=== PATIENT | male | born 1950 | race African-American/Black ===

== ENCOUNTER 2018-03-05 14:54 | Inpatient (IN) ==
[2018-03-05] MEDS ORDERED: SODIUM CHLORIDE 0.9% 1,000 ML IV PRN (15:10)
[2018-03-05] MEDS ORDERED: ALBUTEROL 2.5 MG/3 ML NEB RESP TX PRN (15:10)
[2018-03-05] MEDS ORDERED: PROPOFOL 1,000 MG/100 ML BOTTLE IV ONE (17:09)
[2018-03-05] MEDS: PROPOFOL 1,000 MG/100 ML BOTTLE IV SCH (17:21)
[2018-03-05] MEDS ORDERED: DEXTROSE 50% 25 GM/50 ML VIAL IV PRN (17:24)
[2018-03-05] MEDS ORDERED: GLUCAGON 1 MG VIAL IM PRN (17:24)
[2018-03-05] MEDS: SODIUM CHLORIDE 0.9% 1,000 ML IV SCH (17:24)
[2018-03-05] MEDS ORDERED: MAGNESIUM SULF RIDER 2 GM in PREMIX 1 EACH IV PRN (17:26)
[2018-03-05] MEDS ORDERED: MAGNESIUM SULF RIDER 4 GM in PREMIX 1 EACH IV PRN (17:26)
[2018-03-05] MEDS ORDERED: MAGNESIUM SULF RIDER 4 GM in PREMIX 1 EACH IV ONE (17:26)
[2018-03-05] MEDS: FAMOTIDINE INJ 40 MG in SODIUM CHLORIDE 0.9% 100 ML IV SCH (17:43)
[2018-03-05 17:57] LABS: Basophils % 0.3 % (0.0-0.8); Eosinophils % 0.5 % (0.00-10.9); Hematocrit 39.7 VOL% (42.0-52.0); Hemoglobin 13.4 GM/DL (14.0-18.0); Immature Granulocytes % 0.8 %; Immature Granulocytes Absolute 0.05 #; Lymphocytes # 0.5 10*3/uL (1.4-4.0); Lymphocytes % 7.4 % (21.2-54.2); Mean Corpuscular HGB Conc 33.8 GM/DL (32-36); Mean Corpuscular Hemoglobin 25 PG (27-34); Mean Corpuscular Volume 74.8 FL (87-102); Mean Platelet Volume 10.8 FL (9.6-12.0); Monocytes # 0.3 10*3/uL (0.11-0.8); Monocytes % 4.5 % (1.7-12.7); Neutrophils # 5.6 10*3/uL (1.4-7.4); Neutrophils % 86.5 % (38.7-73.9); Platelet Count 150 T/CUMM (130-400); Red Blood Count 5.31 MC/CUMM (3.8-5.5); Red Cell Distribution Width 13.9 % (9.3-17.3); White Blood Count 6.5 T/CUMM (4-12)
[2018-03-05 18:13] LABS: ABG Base Excess -1.3 MMOL/L (-2.5-2.5); ABG HCO3 23.3 MMOL/L (20-26); ABG Oxygen Saturation 98.8 % (95-100); ABG PCO2 39.4 MM HG (35-48); ABG PH 7.384 (7.35-7.45); ABG TCO2 20.7 MMOL/L (23-27)
[2018-03-05 18:38] LABS: Troponin I Only 0.02 NG/ML (0.00-0.045)
[2018-03-05 18:40] LABS: Albumin 3.7 G/DL (3.4-5.0); Bilirubin,Total 0.7 MG/DL (0.2-1.0); Calcium 8.5 MG/DL (8.5-10.1); Osmolality,Calculated 263.6 MOS/KG (273-304); Potassium 4.7 MMOL/L (3.5-5.1); Total Protein 7.6 G/DL (6.4-8.3)
[2018-03-05 19:06] LABS: Apearance,Urine CLEAR (Clear); Bilirubin,Urine Negative (Negative); Blood, Urine Negative (Negative); Glucose,Urine (UA) 150 mg/dL (Negative); Ketones,Urine Negative (Negative); Nitrite,Urine Negative (Negative); Protein,Urine Negative; RBC,Urine <1 /HPF (0-4); Urine Color Straw (Yellow); Urine Specific Gravity 1.006 (1.001-1.035); Urine Urobilinogen < 2.0 EU/DL (0.2-1.0); WBC,Urine <1 /HPF (0-6)
[2018-03-05] MEDS: methylPREDNISolone SOD SUC 125 MG/2 ML VIAL IV SCH (19:16)
[2018-03-05] MEDS: diphenhydrAMINE 50 MG/1 ML VIAL IV SCH (19:17)
[2018-03-05] MEDS: ALBUTEROL/IPRATROPIUM 3 ML NEB RESP TX SCH (19:23)
[2018-03-05] MEDS: fentaNYL INJ 1,250 MCG in SODIUM CHLORIDE 0.9% 225 ML IV PRN (20:37)
[2018-03-05] MEDS ORDERED: INSULIN GLARGINE 100 UNIT/ML SUBCUT SCH (21:00)
[2018-03-05] MEDS: INSULIN REGULAR 100 UNIT/ML SUBCUT SCH (21:28)
[2018-03-06] MEDS: ALBUTEROL/IPRATROPIUM 3 ML NEB RESP TX SCH ×4 (00:34→19:42)
[2018-03-06] MEDS: diphenhydrAMINE 50 MG/1 ML VIAL IV SCH ×4 (01:10→17:51)
[2018-03-06] MEDS: methylPREDNISolone SOD SUC 125 MG/2 ML VIAL IV SCH ×4 (01:13→14:16)
[2018-03-06] MEDS: PROPOFOL 1,000 MG/100 ML BOTTLE IV SCH ×5 (02:56→21:53)
[2018-03-06 04:18] LABS: ABG Base Excess -3.6 MMOL/L (-2.5-2.5); ABG HCO3 21.1 MMOL/L (20-26); ABG Oxygen Saturation 98.8 % (95-100); ABG PCO2 37.2 MM HG (35-48); ABG PH 7.372 (7.35-7.45); ABG PO2 136.6 MM HG (80-95); ABG TCO2 22.3 MMOL/L (23-27); Allen Test Positive; Pt O2 Delivery Device Ventilator
[2018-03-06 04:44] LABS: Hematocrit 33.2 VOL% (42.0-52.0); Hemoglobin 11.7 GM/DL (14.0-18.0); Immature Granulocytes % 0.7 %; Immature Granulocytes Absolute 0.04 #; Lymphocytes # 0.4 10*3/uL (1.4-4.0); Lymphocytes % 6.5 % (21.2-54.2); Mean Corpuscular HGB Conc 35.2 GM/DL (32-36); Mean Corpuscular Hemoglobin 26 PG (27-34); Mean Corpuscular Volume 73.9 FL (87-102); Mean Platelet Volume 10.8 FL (9.6-12.0); Monocytes # 0.1 10*3/uL (0.11-0.8); Monocytes % 2.1 % (1.7-12.7); Neutrophils # 5.2 10*3/uL (1.4-7.4); Neutrophils % 90.7 % (38.7-73.9); Platelet Count 134 T/CUMM (130-400); Red Blood Count 4.49 MC/CUMM (3.8-5.5); Red Cell Distribution Width 13.6 % (9.3-17.3); White Blood Count 5.7 T/CUMM (4-12)
[2018-03-06] MEDS: SODIUM CHLORIDE 0.9% 1,000 ML IV SCH ×3 (05:03→16:23)
[2018-03-06 05:16] LABS: Albumin 3.2 G/DL (3.4-5.0); Calcium 8.2 MG/DL (8.5-10.1); Osmolality,Calculated 270.2 MOS/KG (273-304); Total Protein 6.6 G/DL (6.4-8.3)
[2018-03-06] MEDS: FAMOTIDINE INJ 40 MG in SODIUM CHLORIDE 0.9% 100 ML IV SCH ×2 (05:43→17:49)
[2018-03-06 07:08] LABS: Band Neutrophils 2 % (0-10); Hypochromasia 1+; Lymphocytes 7 % (20-55); Platelet Estimate Decreased; Segmented Neutrophils 89 % (50-85); Total Cells Counted 100
[2018-03-06] MEDS ORDERED: SODIUM CHLORIDE 0.9% 1,000 ML IV PRN (08:01)
[2018-03-06] MEDS: INSULIN REGULAR 100 UNIT/ML SUBCUT SCH ×4 (08:42→20:40)
[2018-03-06] MEDS: fentaNYL INJ 1,250 MCG in SODIUM CHLORIDE 0.9% 225 ML IV PRN (12:56)
[2018-03-06] MEDS: methylPREDNISolone SOD SUC 40 MG/1 ML VIAL IV SCH ×2 (15:24→20:38)
[2018-03-06] MEDS ORDERED: INSULIN NPH 100 UNIT/ML SUBCUT SCH (21:00)
[2018-03-07] MEDS: ALBUTEROL/IPRATROPIUM 3 ML NEB RESP TX SCH ×4 (00:58→19:51)
[2018-03-07] MEDS: diphenhydrAMINE 50 MG/1 ML VIAL IV SCH ×4 (02:22→18:18)
[2018-03-07] MEDS: methylPREDNISolone SOD SUC 40 MG/1 ML VIAL IV SCH ×4 (02:25→21:54)
[2018-03-07] MEDS: PROPOFOL 1,000 MG/100 ML BOTTLE IV SCH ×6 (02:27→22:31)
[2018-03-07 03:07] LABS: ABG Base Excess -0.9 MMOL/L (-2.5-2.5); ABG HCO3 24.1 MMOL/L (20-26); ABG PH 7.387 (7.35-7.45); ABG TCO2 25.4 MMOL/L (23-27); Allen Test Positive; Pt O2 Delivery Device Ventilator
[2018-03-07] MEDS: fentaNYL INJ 1,250 MCG in SODIUM CHLORIDE 0.9% 225 ML IV PRN ×2 (03:21→18:22)
[2018-03-07] MEDS: SODIUM CHLORIDE 0.9% 1,000 ML IV SCH ×4 (03:47→21:56)
[2018-03-07] MEDS: FAMOTIDINE INJ 40 MG in SODIUM CHLORIDE 0.9% 100 ML IV SCH ×2 (05:37→18:17)
[2018-03-07 05:44] LABS: Calcium 8.5 MG/DL (8.5-10.1); Osmolality,Calculated 273.4 MOS/KG (273-304); Potassium 4.4 MMOL/L (3.5-5.1)
[2018-03-07] MEDS: INSULIN REGULAR 100 UNIT/ML SUBCUT SCH ×4 (09:40→21:56)
[2018-03-07] MEDS: INSULIN NPH 100 UNIT/ML SUBCUT SCH ×2 (09:40→21:56)
[2018-03-08] MEDS: ALBUTEROL/IPRATROPIUM 3 ML NEB RESP TX SCH ×4 (01:35→19:30)
[2018-03-08] MEDS: diphenhydrAMINE 50 MG/1 ML VIAL IV SCH ×4 (01:53→17:12)
[2018-03-08] MEDS: methylPREDNISolone SOD SUC 40 MG/1 ML VIAL IV SCH ×4 (01:56→21:10)
[2018-03-08] MEDS: SODIUM CHLORIDE 0.9% 1,000 ML IV SCH ×3 (02:00→14:10)
[2018-03-08] MEDS: PROPOFOL 1,000 MG/100 ML BOTTLE IV SCH ×3 (03:05→17:29)
[2018-03-08] MEDS: FAMOTIDINE INJ 40 MG in SODIUM CHLORIDE 0.9% 100 ML IV SCH ×2 (05:57→17:10)
[2018-03-08 06:40] LABS: Allen Test Positive; Pt O2 Delivery Device Ventilator
[2018-03-08 06:41] LABS: ABG Base Excess -1.4 MMOL/L (-2.5-2.5); ABG HCO3 23.2 MMOL/L (20-26); ABG Oxygen Saturation 97.8 % (95-100); ABG TCO2 21.8 MMOL/L (23-27)
[2018-03-08] MEDS: INSULIN NPH 100 UNIT/ML SUBCUT SCH ×2 (08:25→20:52)
[2018-03-08] MEDS: cloNIDine 0.1 MG TABLET PO SCH ×2 (08:25→21:12)
[2018-03-08] MEDS: INSULIN REGULAR 100 UNIT/ML SUBCUT SCH ×4 (08:26→20:52)
[2018-03-08] MEDS: hydrALAZINE 20 MG/1 ML VIAL IV PRN ×2 (09:52→18:21)
[2018-03-08 10:03] LABS: ABG Base Excess -0.8 MMOL/L (-2.5-2.5); ABG HCO3 24.2 MMOL/L (20-26); ABG Oxygen Saturation 98.2 % (95-100); ABG PCO2 41.2 MM HG (35-48); ABG PH 7.387 (7.35-7.45); ABG PO2 112.7 MM HG (80-95); ABG TCO2 25.5 MMOL/L (23-27)
[2018-03-08 10:39] LABS: Basophils % 0.1 % (0.0-0.8); Eosinophils % 0.1 % (0.00-10.9); Hemoglobin 12.5 GM/DL (14.0-18.0); Immature Granulocytes % 2.8 %; Lymphocytes # 0.4 10*3/uL (1.4-4.0); Lymphocytes % 2.5 % (21.2-54.2); Mean Corpuscular HGB Conc 33.8 GM/DL (32-36); Mean Corpuscular Hemoglobin 26 PG (27-34); Mean Corpuscular Volume 76.4 FL (87-102); Mean Platelet Volume 11.1 FL (9.6-12.0); Monocytes # 1.1 10*3/uL (0.11-0.8); Monocytes % 7.3 % (1.7-12.7); NRBC # 0.15 10*3/uL; Neutrophils # 12.7 10*3/uL (1.4-7.4); Neutrophils % 87.2 % (38.7-73.9); Platelet Count 145 T/CUMM (130-400); Red Blood Count 4.84 MC/CUMM (3.8-5.5); Red Cell Distribution Width 14.8 % (9.3-17.3); White Blood Count 14.5 T/CUMM (4-12)
[2018-03-08 10:57] LABS: Calcium 8.5 MG/DL (8.5-10.1); Osmolality,Calculated 278.1 MOS/KG (273-304); Potassium 4.7 MMOL/L (3.5-5.1)
[2018-03-08 10:59] LABS: Lymphocytes 6 % (20-55); Segmented Neutrophils 88 % (50-85); Total Cells Counted 100
[2018-03-08 11:00] LABS: Hypochromasia 1+; Microcytosis 1+; Target Cells Few
[2018-03-08 11:01] LABS: Ovalocytes Slight
[2018-03-08] MEDS: fentaNYL INJ 1,250 MCG in SODIUM CHLORIDE 0.9% 225 ML IV PRN (11:59)
[2018-03-08] MEDS: hydrALAZINE 25 MG TABLET PO SCH ×3 (12:06→21:12)
[2018-03-08] MEDS: chlordiazePOXIDE 10 MG CAPSULE PO SCH ×2 (15:16→21:12)
[2018-03-09] MEDS: diphenhydrAMINE 50 MG/1 ML VIAL IV SCH ×2 (00:09→06:02)
[2018-03-09] MEDS: SODIUM CHLORIDE 0.9% 1,000 ML IV SCH (00:43)
[2018-03-09] MEDS ORDERED: ZALEPLON 5 MG CAPSULE PO PRN (00:47)
[2018-03-09] MEDS: ALBUTEROL/IPRATROPIUM 3 ML NEB RESP TX SCH ×4 (01:31→19:23)
[2018-03-09] MEDS: methylPREDNISolone SOD SUC 40 MG/1 ML VIAL IV SCH (03:10)
[2018-03-09] MEDS: hydrALAZINE 20 MG/1 ML VIAL IV PRN (04:10)
[2018-03-09] MEDS: FAMOTIDINE INJ 40 MG in SODIUM CHLORIDE 0.9% 100 ML IV SCH (06:06)
[2018-03-09] MEDS ORDERED: LORazepam 2 MG/1 ML VIAL IV PRN (07:48)
[2018-03-09] MEDS ORDERED: FUROSEMIDE 40 MG/4 ML VIAL IV ONE (07:50)
[2018-03-09] MEDS ORDERED: methylPREDNISolone SOD SUC 40 MG/1 ML VIAL IV SCH (08:00)
[2018-03-09] MEDS: CETIRIZINE 10 MG TABLET PO SCH (08:04)
[2018-03-09] MEDS: cloNIDine 0.1 MG TABLET PO SCH (08:05)
[2018-03-09] MEDS: hydrALAZINE 25 MG TABLET PO SCH ×4 (08:05→21:26)
[2018-03-09] MEDS: chlordiazePOXIDE 10 MG CAPSULE PO SCH ×3 (08:06→21:26)
[2018-03-09] MEDS: INSULIN REGULAR 100 UNIT/ML SUBCUT SCH ×4 (08:09→21:25)
[2018-03-09] MEDS: INSULIN NPH 100 UNIT/ML SUBCUT SCH ×2 (08:09→21:26)
[2018-03-09] MEDS: FAMOTIDINE 20 MG TABLET PO SCH ×2 (10:21→21:26)
[2018-03-09] MEDS: amLODIPine 5 MG TABLET PO SCH (12:28)
[2018-03-10] MEDS: ALBUTEROL/IPRATROPIUM 3 ML NEB RESP TX SCH ×2 (00:45→07:37)
[2018-03-10 05:03] LABS: Calcium 8.9 MG/DL (8.5-10.1); Osmolality,Calculated 293.8 MOS/KG (273-304); Potassium 3.5 MMOL/L (3.5-5.1); Risk Ratio 3.84; VLDL CHOLESTEROL 16.6 MG/DL
[2018-03-10] MEDS: INSULIN REGULAR 100 UNIT/ML SUBCUT SCH ×2 (08:31→13:05)
[2018-03-10] MEDS ORDERED: ASPIRIN EC 81 MG TABLET PO SCH (09:00)
[2018-03-10] MEDS ORDERED: METOPROLOL SUCCINATE XL 50 MG TABLET PO SCH (09:00)
[2018-03-10] MEDS: FAMOTIDINE 20 MG TABLET PO SCH (09:25)
[2018-03-10] MEDS: amLODIPine 5 MG TABLET PO SCH (09:25)
[2018-03-10] MEDS: CETIRIZINE 10 MG TABLET PO SCH (09:25)
[2018-03-10] MEDS: INSULIN NPH 100 UNIT/ML SUBCUT SCH (09:25)
[2018-03-10] MEDS: hydrALAZINE 25 MG TABLET PO SCH ×2 (09:25→13:00)
[2018-03-10] MEDS: chlordiazePOXIDE 10 MG CAPSULE PO SCH (09:28)
[2018-03-10 13:58] VITALS: BP 164/102
== END 2018-03-10 13:25 | disposition home or self-care (01) | DRG 915 ==
LOC: N.CC 16:35 → SUATTDRO 16:35 → N.CC 03-07 12:54
PROVIDERS: ADMIT Internal Medicine Cardiovascular Disease; ATTEND Internal Medicine

== ENCOUNTER 2019-11-12 16:46 | Inpatient (IN) ==
[2019-11-12] MEDS ORDERED: THIAMINE 200 MG/2 ML VIAL IV STA (17:31)
[2019-11-12 18:57] LABS: Amorphous Crystals,Urine Few /HPF (Few); Apearance,Urine CLOUDY (Clear); Bilirubin,Urine Negative (Negative); Blood, Urine Negative (Negative); Glucose,Urine (UA) Negative (Negative); Hyaline Casts,Urine 22 /LPF (0-3); Ketones,Urine Negative (Negative); Nitrite,Urine Negative (Negative); Protein,Urine Negative; Urine Color Amber (Yellow); Urine Specific Gravity 1.016 (1.001-1.035); Urine Urobilinogen < 2.0 EU/DL (0.2-1.0)
[2019-11-12 18:59] LABS: Basophils # 0.1 10*3/uL (0.0-0.2); Basophils % 0.7 % (0.0-0.8); Eosinophils # 0.8 10*3/uL (0.0-0.87); Eosinophils % 7.2 % (0.00-10.9); Hematocrit 34.1 VOL% (42.0-52.0); Hemoglobin 11.2 GM/DL (14.0-18.0); Immature Granulocytes % 0.4 %; Immature Granulocytes Absolute 0.04 #; Lymphocytes # 1.1 10*3/uL (1.4-4.0); Lymphocytes % 10.2 % (21.2-54.2); Mean Corpuscular HGB Conc 32.8 GM/DL (32-36); Monocytes % 4.7 % (1.7-12.7); Neutrophils % 76.8 % (38.7-73.9); Platelet Count 64 T/CUMM (130-400); Red Blood Count 4.21 MC/CUMM (3.8-5.5); Red Cell Distribution Width 17.5 % (9.3-17.3); White Blood Count 10.8 T/CUMM (4-12)
[2019-11-12 19:03] LABS: Bilirubin,Total 0.4 MG/DL (0.2-1.0); Calcium 8.1 MG/DL (8.5-10.1); Osmolality,Calculated 306.4 MOS/KG (273-304); Thyroid Stimulating Hormone 9.28 uIU/ml (0.358-3.74); Total Protein 4.5 G/DL (6.4-8.3)
[2019-11-12 19:08] LABS: INR 1.5; PT Patient Result 15.9 SECS (9.6-12.2); Partial Thromboplastin Time 36.2 SECS (20.8-36.0)
[2019-11-12] MEDS ORDERED: SODIUM CHLORIDE 0.9% 1,000 ML IV STA (19:33)
[2019-11-12 19:54] LABS: Anisocytosis 1+; Poikilocytosis Slight
[2019-11-12 19:55] LABS: Acanthocytes 1+; Target Cells Slight
[2019-11-12] MEDS ORDERED: diphenhydrAMINE CAP 25 MG CAPSULE PO PRN (22:18)
[2019-11-12] MEDS ORDERED: SODIUM POLYSTYRENE SULFATE 15 GM/60 ML BOTTLE PO STA (22:18)
[2019-11-12] MEDS ORDERED: GLUCAGON 1 MG VIAL IM PRN (22:18)
[2019-11-12] MEDS ORDERED: NICOTINE 21 MG/24 HR PATCH TRANSDERM PRN (22:18)
[2019-11-12] MEDS ORDERED: ONDANSETRON 4 MG/2 ML VIAL IV PRN (22:18)
[2019-11-12] MEDS ORDERED: DEXTROSE 10% 250 ML BAG IV PRN (22:18)
[2019-11-12] MEDS ORDERED: ACETAMINOPHEN 325 MG TABLET PO PRN (22:18)
[2019-11-12] MEDS ORDERED: HALOPERIDOL 5 MG/ML AMP IV PRN (22:24)
[2019-11-12] MEDS ORDERED: SODIUM CHLORIDE 0.9% 1,000 ML IV SCH (22:30)
[2019-11-12 23:26] LABS: Albumin 1.3 G/DL (3.4-5.0); Bilirubin,Direct 0.14 MG/DL (0.0-0.20); Bilirubin,Indirect 0.3 MG/DL (0.0-1.0); Bilirubin,Total 0.4 MG/DL (0.2-1.0); Total Protein 4.8 G/DL (6.4-8.3)
[2019-11-13] MEDS ORDERED: THIAMINE INJ 100 MG, FOLIC ACID INJ 1 MG, MULTIVITAMIN INJ 10 ML in SODIUM CHLORIDE 0.9... IV ONE
[2019-11-13 00:13] LABS: Hepatitis B Core IgM Quant < 0.05 Index; Hepatitis B Surface Ag Quant < 0.10 Index; Hepatitis B Surface Ag Result Negative (Negative); Hepatitis C Virus Ab Quant 0.12 Index; Hepatitis C Virus Ab Result Negative (Negative)
[2019-11-13] MEDS: INSULIN REGULAR 100 UNIT/ML SUBCUT SCH ×4 (01:00→18:33)
[2019-11-13] MEDS ORDERED: SODIUM CHLORIDE 0.9% 1,000 ML IV ONE (02:29)
[2019-11-13 05:17] LABS: Basophils % 0.1 % (0.0-0.8); Eosinophils # 0.3 10*3/uL (0.0-0.87); Hematocrit 33.6 VOL% (42.0-52.0); Hemoglobin 10.9 GM/DL (14.0-18.0); Immature Granulocytes % 0.4 %; Immature Granulocytes Absolute 0.04 #; Lymphocytes # 0.8 10*3/uL (1.4-4.0); Lymphocytes % 8.7 % (21.2-54.2); Mean Corpuscular HGB Conc 32.4 GM/DL (32-36); Monocytes % 5.7 % (1.7-12.7); Neutrophils % 82.1 % (38.7-73.9); Red Blood Count 4.15 MC/CUMM (3.8-5.5); Red Cell Distribution Width 17.6 % (9.3-17.3); White Blood Count 9.6 T/CUMM (4-12)
[2019-11-13 05:21] LABS: Platelet Count 51 T/CUMM (130-400)
[2019-11-13 05:34] LABS: Albumin 1.1 G/DL (3.4-5.0); Bilirubin,Total 0.4 MG/DL (0.2-1.0); Osmolality,Calculated 312.6 MOS/KG (273-304); Total Protein 4.5 G/DL (6.4-8.3)
[2019-11-13 05:41] LABS: Burr Cells Slight; Hypochromasia 1+; Ovalocytes Slight; Platelet Estimate Decreased
[2019-11-13] MEDS: LEVOTHYROXINE 50 MCG TABLET PO SCH (05:41)
[2019-11-13] MEDS: DEXTROSE 5% 1,000 ML IV SCH ×2 (10:02→20:15)
[2019-11-13] MEDS: METOPROLOL TARTRATE 25 MG TABLET PO SCH ×2 (11:23→20:09)
[2019-11-13] MEDS: BICALUTAMIDE 50 MG TABLET PO SCH (11:23)
[2019-11-13 17:43] LABS: Apearance,Urine Slightly Hazy (Clear); Bacteria,Urine Occasional /HPF (Few); Bilirubin,Urine Negative (Negative); Blood, Urine Negative (Negative); Glucose,Urine (UA) Negative (Negative); Hyaline Casts,Urine 12 /LPF (0-3); Ketones,Urine Negative (Negative); Mucus,Urine Occasional /LPF (Occasional); Nitrite,Urine Negative (Negative); Protein,Urine Negative; RBC,Urine 1 /HPF (0-4); Squamous Epithelial Cell,Urine Occasional /HPF (0-10); Urine Specific Gravity 1.015 (1.001-1.035); Urine Urobilinogen < 2.0 EU/DL (0.2-1.0); WBC,Urine 4 /HPF (0-6)
[2019-11-13 17:44] LABS: Urine Color Yellow (Yellow)
[2019-11-13] MEDS: ATORVASTATIN 40 MG TABLET PO SCH (20:10)
[2019-11-14] MEDS: INSULIN REGULAR 100 UNIT/ML SUBCUT SCH ×4 (00:23→17:10)
[2019-11-14] MEDS: LEVOTHYROXINE 50 MCG TABLET PO SCH (05:44)
[2019-11-14] MEDS: DEXTROSE 5% 1,000 ML IV SCH (05:54)
[2019-11-14 06:03] LABS: Basophils % 0.1 % (0.0-0.8); Eosinophils # 0.3 10*3/uL (0.0-0.87); Eosinophils % 3.4 % (0.00-10.9); Hematocrit 30.9 VOL% (42.0-52.0); Hemoglobin 10.2 GM/DL (14.0-18.0); Immature Granulocytes % 0.4 %; Immature Granulocytes Absolute 0.04 #; Lymphocytes % 10.8 % (21.2-54.2); Mean Corpuscular Volume 80.1 FL (87-102); NRBC # 0.03 10*3/uL; Neutrophils % 78.3 % (38.7-73.9); Platelet Count 52 T/CUMM (130-400); Red Blood Count 3.86 MC/CUMM (3.8-5.5); Red Cell Distribution Width 17.5 % (9.3-17.3); White Blood Count 9.2 T/CUMM (4-12)
[2019-11-14 06:22] LABS: Calcium 7.8 MG/DL (8.5-10.1); Osmolality,Calculated 310.4 MOS/KG (273-304)
[2019-11-14 06:24] LABS: Albumin 1.2 G/DL (3.4-5.0); Calcium 7.8 MG/DL (8.5-10.1); Osmolality,Calculated 312.3 MOS/KG (273-304)
[2019-11-14 06:57] LABS: Hypochromasia 1+; Microcytosis 1+; Platelet Estimate Decreased; Target Cells Few
[2019-11-14] MEDS ORDERED: MAGNESIUM SULF RIDER 4 GM in PREMIX 1 EACH IV PRN (07:29)
[2019-11-14] MEDS ORDERED: DEXTROSE 5% 1,000 ML IV SCH (08:30)
[2019-11-14] MEDS: MAGNESIUM SULF RIDER 2 GM in PREMIX 1 EACH IV PRN ×2 (08:37→10:37)
[2019-11-14] MEDS: METOPROLOL TARTRATE 25 MG TABLET PO SCH ×2 (08:37→20:24)
[2019-11-14] MEDS: BICALUTAMIDE 50 MG TABLET PO SCH (08:39)
[2019-11-14] MEDS: FUROSEMIDE 40 MG/4 ML VIAL IV SCH ×2 (09:21→15:04)
[2019-11-14] MEDS: LACTULOSE 20 GM/30 ML UDCUP PO SCH ×2 (09:21→20:25)
[2019-11-14] MEDS ORDERED: LEVOTHYROXINE 100 MCG VIAL IV ONE (10:25)
[2019-11-14] MEDS: ALBUMIN 5% 25 GM in PREMIX 1 EACH IV SCH ×2 (10:44→17:37)
[2019-11-14 14:23] LABS: Calcium 7.9 MG/DL (8.5-10.1); Osmolality,Calculated 302.9 MOS/KG (273-304)
[2019-11-14] MEDS: THIAMINE 200 MG/2 ML VIAL IV SCH ×2 (15:04→20:25)
[2019-11-14] MEDS: methylPREDNISolone SOD SUC 125 MG/2 ML VIAL IV SCH (15:05)
[2019-11-14] MEDS: MULTIVITAMIN LIQUID (CENTRUM) 60 ML BOTTLE NG SCH (16:51)
[2019-11-14] MEDS ORDERED: VANCOMYCIN INJ 1,250 MG in SODIUM CHLORIDE 0.9% 250 ML IV SCH (17:00)
[2019-11-14] MEDS ORDERED: LIOTHYRONINE 25 MCG TABLET PO SCH ×2 (17:05→17:22)
[2019-11-14] MEDS: LIOTHYRONINE 25 MCG TABLET PO SCH (17:37)
[2019-11-14] MEDS: ATORVASTATIN 40 MG TABLET PO SCH (20:24)
[2019-11-15] MEDS: methylPREDNISolone SOD SUC 125 MG/2 ML VIAL IV SCH ×4 (00:16→22:38)
[2019-11-15] MEDS: INSULIN REGULAR 100 UNIT/ML SUBCUT SCH ×4 (00:43→17:45)
[2019-11-15] MEDS: ALBUMIN 5% 25 GM in PREMIX 1 EACH IV SCH (02:16)
[2019-11-15 05:28] LABS: Hematocrit 25.6 VOL% (42.0-52.0); Hemoglobin 8.5 GM/DL (14.0-18.0); Immature Granulocytes % 0.7 %; Immature Granulocytes Absolute 0.04 #; Lymphocytes # 0.5 10*3/uL (1.4-4.0); Lymphocytes % 8.7 % (21.2-54.2); Mean Corpuscular HGB Conc 33.2 GM/DL (32-36); Mean Corpuscular Volume 79.5 FL (87-102); Monocytes % 1.2 % (1.7-12.7); NRBC # 0.02 10*3/uL; Neutrophils % 89.4 % (38.7-73.9); Red Blood Count 3.22 MC/CUMM (3.8-5.5); Red Cell Distribution Width 17.2 % (9.3-17.3); White Blood Count 6.1 T/CUMM (4-12)
[2019-11-15 05:30] LABS: Platelet Count 53 T/CUMM (130-400)
[2019-11-15 06:01] LABS: Platelet Estimate Decreased
[2019-11-15 06:02] LABS: Polychromasia Few; Target Cells Few
[2019-11-15 06:04] LABS: Folate 7.8 NG/ML (5.4-24.0)
[2019-11-15] MEDS: LIOTHYRONINE 25 MCG TABLET PO SCH (06:08)
[2019-11-15] MEDS ORDERED: LIOTHYRONINE 25 MCG TABLET PO SCH ×2 (07:00→16:58)
[2019-11-15] MEDS ORDERED: LEVOTHYROXINE 100 MCG VIAL IV SCH (07:00)
[2019-11-15 07:23] LABS: Calcium 8.1 MG/DL (8.5-10.1); Osmolality,Calculated 311.4 MOS/KG (273-304)
[2019-11-15] MEDS: LACTULOSE 20 GM/30 ML UDCUP PO SCH ×3 (08:11→20:05)
[2019-11-15] MEDS: FUROSEMIDE 40 MG/4 ML VIAL IV SCH ×2 (08:11→15:12)
[2019-11-15] MEDS: BICALUTAMIDE 50 MG TABLET PO SCH (08:12)
[2019-11-15] MEDS: METOPROLOL TARTRATE 25 MG TABLET PO SCH ×2 (08:12→20:05)
[2019-11-15] MEDS: THIAMINE 200 MG/2 ML VIAL IV SCH ×3 (08:12→20:06)
[2019-11-15] MEDS: MULTIVITAMIN LIQUID (CENTRUM) 60 ML BOTTLE NG SCH (08:13)
[2019-11-15 08:18] LABS: ABG Base Excess -8.3 MMOL/L (-2.5-2.5); ABG HCO3 16.5 MMOL/L (20-26); ABG Oxygen Saturation 97.9 % (95-100); ABG PCO2 31.1 MM HG (35-48); ABG PH 7.343 (7.35-7.45); ABG PO2 136.2 MM HG (80-95); ABG TCO2 17.5 MMOL/L (23-27); Allen Test Positive
[2019-11-15] MEDS: MEROPENEM 500 MG in SODIUM CHLORIDE 0.9% 100 ML IV SCH ×2 (10:50→18:00)
[2019-11-15] MEDS: ALBUMIN 25% 25 GM in PREMIX 1 EACH IV SCH ×2 (12:09→20:05)
[2019-11-15 15:29] LABS: Albumin 2.3 G/DL (3.4-5.0); Bilirubin,Total 0.7 MG/DL (0.2-1.0); Calcium 8.4 MG/DL (8.5-10.1); Osmolality,Calculated 318.2 MOS/KG (273-304); Total Protein 5.1 G/DL (6.4-8.3)
[2019-11-15] MEDS ORDERED: chlordiazePOXIDE 10 MG CAPSULE PO PRN (17:39)
[2019-11-15] MEDS ORDERED: chlordiazePOXIDE 10 MG CAPSULE PO ONE (17:40)
[2019-11-15] MEDS: SODIUM BICARB INJ 50 MEQ in DEXTROSE 5% 1,000 ML IV SCH (18:00)
[2019-11-15] MEDS: ATORVASTATIN 40 MG TABLET PO SCH (20:05)
[2019-11-16] MEDS: INSULIN REGULAR 100 UNIT/ML SUBCUT SCH ×5 (00:13→23:27)
[2019-11-16] MEDS: MEROPENEM 500 MG in SODIUM CHLORIDE 0.9% 100 ML IV SCH ×3 (03:35→18:23)
[2019-11-16] MEDS: ALBUMIN 25% 25 GM in PREMIX 1 EACH IV SCH (03:36)
[2019-11-16 04:35] LABS: Basophils % 0.1 % (0.0-0.8); Hematocrit 23.5 VOL% (42.0-52.0); Hemoglobin 7.7 GM/DL (14.0-18.0); Immature Granulocytes % 0.5 %; Immature Granulocytes Absolute 0.04 #; Lymphocytes % 11.7 % (21.2-54.2); Mean Corpuscular HGB Conc 32.8 GM/DL (32-36); Mean Corpuscular Volume 81.3 FL (87-102); Monocytes % 5.2 % (1.7-12.7); NRBC # 0.04 10*3/uL; Neutrophils % 82.5 % (38.7-73.9); Red Blood Count 2.89 MC/CUMM (3.8-5.5); Red Cell Distribution Width 17.1 % (9.3-17.3); White Blood Count 8.1 T/CUMM (4-12)
[2019-11-16 04:36] LABS: Platelet Count 56 T/CUMM (130-400)
[2019-11-16] MEDS: SODIUM BICARB INJ 50 MEQ in DEXTROSE 5% 1,000 ML IV SCH ×3 (04:38→23:13)
[2019-11-16 04:56] LABS: Albumin 2.8 G/DL (3.4-5.0); Bilirubin,Total 0.7 MG/DL (0.2-1.0); Calcium 8.3 MG/DL (8.5-10.1); Osmolality,Calculated 317.2 MOS/KG (273-304); Total Protein 5.2 G/DL (6.4-8.3)
[2019-11-16] MEDS: LIOTHYRONINE 25 MCG TABLET PO SCH (06:08)
[2019-11-16] MEDS: methylPREDNISolone SOD SUC 125 MG/2 ML VIAL IV SCH ×3 (06:08→23:26)
[2019-11-16] MEDS: LEVOTHYROXINE 100 MCG VIAL IV SCH (06:11)
[2019-11-16] MEDS: BICALUTAMIDE 50 MG TABLET PO SCH (10:43)
[2019-11-16] MEDS: LACTULOSE 20 GM/30 ML UDCUP PO SCH ×2 (10:43→21:31)
[2019-11-16] MEDS: METOPROLOL TARTRATE 25 MG TABLET PO SCH ×2 (10:45→21:31)
[2019-11-16] MEDS: MULTIVITAMIN LIQUID (CENTRUM) 60 ML BOTTLE NG SCH (10:45)
[2019-11-16] MEDS: THIAMINE 200 MG/2 ML VIAL IV SCH ×3 (10:46→21:31)
[2019-11-16] MEDS: ALBUMIN 5% 25 GM in PREMIX 1 EACH IV SCH (18:41)
[2019-11-16] MEDS: ATORVASTATIN 40 MG TABLET PO SCH (21:31)
[2019-11-17] MEDS: ALBUMIN 5% 25 GM in PREMIX 1 EACH IV SCH (03:03)
[2019-11-17] MEDS: MEROPENEM 500 MG in SODIUM CHLORIDE 0.9% 100 ML IV SCH ×3 (04:16→21:15)
[2019-11-17 05:25] LABS: Calcium 8.6 MG/DL (8.5-10.1); Osmolality,Calculated 311.4 MOS/KG (273-304)
[2019-11-17] MEDS: INSULIN REGULAR 100 UNIT/ML SUBCUT SCH ×3 (05:53→17:44)
[2019-11-17] MEDS: methylPREDNISolone SOD SUC 125 MG/2 ML VIAL IV SCH ×3 (06:15→22:30)
[2019-11-17] MEDS: LEVOTHYROXINE 100 MCG VIAL IV SCH (06:15)
[2019-11-17] MEDS: LIOTHYRONINE 25 MCG TABLET PO SCH (06:15)
[2019-11-17 07:06] LABS: Hematocrit 22.1 VOL% (42.0-52.0); Hemoglobin 7.3 GM/DL (14.0-18.0); Immature Granulocytes % 0.6 %; Immature Granulocytes Absolute 0.05 #; Lymphocytes # 0.6 10*3/uL (1.4-4.0); Mean Corpuscular Volume 80.1 FL (87-102); Monocytes % 4.9 % (1.7-12.7); NRBC # 0.09 10*3/uL; Neutrophils % 87.5 % (38.7-73.9); Platelet Count 53 T/CUMM (130-400); Red Blood Count 2.76 MC/CUMM (3.8-5.5)
[2019-11-17] MEDS: SODIUM BICARB INJ 50 MEQ in DEXTROSE 5% 1,000 ML IV SCH ×2 (07:46→15:48)
[2019-11-17 07:47] LABS: Hypochromasia 1+; Platelet Estimate Decreased; Target Cells Few
[2019-11-17] MEDS: METOPROLOL TARTRATE 25 MG TABLET PO SCH ×2 (09:30→20:58)
[2019-11-17] MEDS: LACTULOSE 20 GM/30 ML UDCUP PO SCH ×3 (09:30→20:58)
[2019-11-17] MEDS: MULTIVITAMIN LIQUID (CENTRUM) 60 ML BOTTLE NG SCH (09:31)
[2019-11-17] MEDS: BICALUTAMIDE 50 MG TABLET PO SCH (09:32)
[2019-11-17] MEDS: THIAMINE 200 MG/2 ML VIAL IV SCH ×3 (09:32→21:13)
[2019-11-17] MEDS ORDERED: ACETYLCYSTEINE 20% 800 MG/4 ML VIAL RESP TX ONE (11:28)
[2019-11-17] MEDS ORDERED: SODIUM CHLORIDE 0.9% 1,000 ML IV PRN ×2 (16:44→16:46)
[2019-11-17] MEDS ORDERED: INSULIN DETEMIR SUBCUT SCH (18:46)
[2019-11-17 20:17] LABS: Apearance,Urine Slightly Hazy (Clear); Bacteria,Urine Few /HPF (Few); Bilirubin,Urine Negative (Negative); Blood, Urine Large mg/dL (Negative); Calcium Oxalate Crystals,Urine Occasional /HPF (Few); Glucose,Urine (UA) Negative (Negative); Hyaline Casts,Urine 138 /LPF (0-3); Ketones,Urine Negative (Negative); Mucus,Urine Occasional /LPF (Occasional); Nitrite,Urine Negative (Negative); Protein,Urine Negative; RBC,Urine 51 /HPF (0-4); Squamous Epithelial Cell,Urine Occasional /HPF (0-10); Urine Color Yellow (Yellow); Urine Specific Gravity 1.013 (1.001-1.035); Urine Urobilinogen < 2.0 EU/DL (0.2-1.0); WBC,Urine 73 /HPF (0-6)
[2019-11-17] MEDS: ATORVASTATIN 40 MG TABLET PO SCH (20:58)
[2019-11-17] MEDS: traZODone 50 MG TABLET PO SCH (20:58)
[2019-11-18] MEDS ORDERED: SODIUM CHLORIDE 0.9% 1,000 ML IV PRN (00:22)
[2019-11-18 00:45] LABS: Hematocrit 29.5 VOL% (42.0-52.0); Hemoglobin 9.3 GM/DL (14.0-18.0)
[2019-11-18] MEDS: INSULIN REGULAR 100 UNIT/ML SUBCUT SCH ×4 (01:29→19:26)
[2019-11-18] MEDS: SODIUM BICARB INJ 50 MEQ in DEXTROSE 5% 1,000 ML IV SCH (01:31)
[2019-11-18] MEDS: MEROPENEM 500 MG in SODIUM CHLORIDE 0.9% 100 ML IV SCH ×3 (04:08→18:11)
[2019-11-18 05:27] LABS: Hematocrit 26.2 VOL% (42.0-52.0); Hemoglobin 8.8 GM/DL (14.0-18.0); Immature Granulocytes % 0.8 %; Immature Granulocytes Absolute 0.07 #; Lymphocytes # 0.5 10*3/uL (1.4-4.0); Lymphocytes % 5.6 % (21.2-54.2); Mean Corpuscular HGB Conc 33.6 GM/DL (32-36); Mean Corpuscular Volume 79.9 FL (87-102); Monocytes % 4.3 % (1.7-12.7); NRBC # 0.04 10*3/uL; Neutrophils % 89.3 % (38.7-73.9); Platelet Count 61 T/CUMM (130-400); Red Blood Count 3.28 MC/CUMM (3.8-5.5); Red Cell Distribution Width 16.9 % (9.3-17.3); White Blood Count 8.6 T/CUMM (4-12)
[2019-11-18 05:48] LABS: Calcium 8.8 MG/DL (8.5-10.1); Hypochromasia 1+; Lymphocytes 4 % (20-55); Nucleated Red Blood Cells 2 (0-5); Osmolality,Calculated 320.6 MOS/KG (273-304); Ovalocytes Slight; Platelet Estimate Decreased; Segmented Neutrophils 95 % (50-85); Total Cells Counted 100
[2019-11-18 05:49] LABS: Target Cells Few
[2019-11-18 05:52] LABS: Free T4 (Free Thyroxine) 0.87 NG/DL (0.76-1.46); Thyroid Stimulating Hormone 0.252 uIU/ml (0.358-3.74)
[2019-11-18 05:55] LABS: Albumin 2.9 G/DL (3.4-5.0); Bilirubin,Total 0.9 MG/DL (0.2-1.0); Calcium 8.9 MG/DL (8.5-10.1); Osmolality,Calculated 313.1 MOS/KG (273-304)
[2019-11-18] MEDS ORDERED: POTASSIUM CHLORIDE 20 MEQ/15 ML UDCUP PER TUBE PRN (06:38)
[2019-11-18] MEDS ORDERED: POTASSIUM CHLORIDE RIDER 10 MEQ in PREMIX 1 EACH IV PRN (06:42)
[2019-11-18] MEDS ORDERED: POTASSIUM CHLORIDE 20 MEQ/15 ML UDCUP PER TUBE ONE (06:45)
[2019-11-18] MEDS: methylPREDNISolone SOD SUC 125 MG/2 ML VIAL IV SCH ×2 (06:59→15:15)
[2019-11-18] MEDS: LEVOTHYROXINE 100 MCG VIAL IV SCH (06:59)
[2019-11-18] MEDS: LIOTHYRONINE 25 MCG TABLET PO SCH (07:01)
[2019-11-18] MEDS ORDERED: OMEGA 3 ACID ETHYL ESTERS 1 GM CAPSULE PO SCH (09:00)
[2019-11-18 09:35] LABS: Hematocrit 26.8 VOL% (42.0-52.0); Hemoglobin 9.1 GM/DL (14.0-18.0)
[2019-11-18] MEDS: THIAMINE 200 MG/2 ML VIAL IV SCH ×3 (10:52→21:58)
[2019-11-18] MEDS: CETIRIZINE 10 MG TABLET PO SCH (11:19)
[2019-11-18] MEDS: METOPROLOL TARTRATE 25 MG TABLET PO SCH ×2 (11:19→21:57)
[2019-11-18] MEDS: BICALUTAMIDE 50 MG TABLET PO SCH (11:20)
[2019-11-18] MEDS: MULTIVITAMIN LIQUID (CENTRUM) 60 ML BOTTLE NG SCH (11:20)
[2019-11-18] MEDS: LACTULOSE 20 GM/30 ML UDCUP PO SCH ×3 (11:20→21:58)
[2019-11-18] MEDS: POTASSIUM CHLORIDE INJ 40 MEQ in DEXTROSE 5% 1,000 ML IV SCH ×2 (11:50→21:55)
[2019-11-18 14:46] LABS: Hemoglobin 9.7 GM/DL (14.0-18.0)
[2019-11-18 18:16] LABS: Calcium 8.8 MG/DL (8.5-10.1); Osmolality,Calculated 306.6 MOS/KG (273-304)
[2019-11-18] MEDS ORDERED: POTASSIUM CHLORIDE 20 MEQ TABLET PO ONE (21:00)
[2019-11-18] MEDS: traZODone 50 MG TABLET PO SCH (21:58)
[2019-11-18] MEDS: ATORVASTATIN 40 MG TABLET PO SCH (21:58)
[2019-11-19] MEDS: INSULIN REGULAR 100 UNIT/ML SUBCUT SCH ×4 (00:38→18:34)
[2019-11-19] MEDS: methylPREDNISolone SOD SUC 125 MG/2 ML VIAL IV SCH ×4 (00:39→23:06)
[2019-11-19] MEDS: MEROPENEM 500 MG in SODIUM CHLORIDE 0.9% 100 ML IV SCH ×3 (03:59→18:34)
[2019-11-19] MEDS: LEVOTHYROXINE 100 MCG VIAL IV SCH (06:00)
[2019-11-19] MEDS: LIOTHYRONINE 25 MCG TABLET PO SCH (06:01)
[2019-11-19 06:41] LABS: Hematocrit 28.4 VOL% (42.0-52.0); Hemoglobin 9.5 GM/DL (14.0-18.0); Immature Granulocytes % 0.6 %; Immature Granulocytes Absolute 0.05 #; Lymphocytes # 0.4 10*3/uL (1.4-4.0); Lymphocytes % 4.7 % (21.2-54.2); Mean Corpuscular HGB Conc 33.5 GM/DL (32-36); Monocytes % 6.9 % (1.7-12.7); NRBC # 0.05 10*3/uL; Neutrophils % 87.8 % (38.7-73.9); Platelet Count 52 T/CUMM (130-400); Red Blood Count 3.55 MC/CUMM (3.8-5.5); Red Cell Distribution Width 16.7 % (9.3-17.3); White Blood Count 8.9 T/CUMM (4-12)
[2019-11-19 07:16] LABS: Calcium 8.9 MG/DL (8.5-10.1); Osmolality,Calculated 309.3 MOS/KG (273-304)
[2019-11-19 07:19] LABS: Hypochromasia 1+; Lymphocytes 4 % (20-55); Microcytosis 1+; Platelet Estimate Decreased; Polychromasia Slight; Segmented Neutrophils 91 % (50-85); Target Cells Few; Total Cells Counted 100
[2019-11-19] MEDS ORDERED: POTASSIUM CHLORIDE 20 MEQ TABLET PO ONE (11:00)
[2019-11-19] MEDS: METOPROLOL TARTRATE 25 MG TABLET PO SCH ×2 (11:05→21:42)
[2019-11-19] MEDS: THIAMINE 200 MG/2 ML VIAL IV SCH ×3 (11:05→21:42)
[2019-11-19] MEDS: CETIRIZINE 10 MG TABLET PO SCH (11:07)
[2019-11-19] MEDS: LACTULOSE 20 GM/30 ML UDCUP PO SCH ×3 (11:07→23:05)
[2019-11-19] MEDS: BICALUTAMIDE 50 MG TABLET PO SCH (11:07)
[2019-11-19] MEDS: POTASSIUM CHLORIDE INJ 40 MEQ in DEXTROSE 5% 1,000 ML IV SCH ×2 (11:22→21:43)
[2019-11-19] MEDS: MULTIVITAMIN LIQUID (CENTRUM) 60 ML BOTTLE NG SCH (13:33)
[2019-11-19] MEDS: traZODone 50 MG TABLET PO SCH (21:42)
[2019-11-19] MEDS: ATORVASTATIN 40 MG TABLET PO SCH (21:42)
[2019-11-20] MEDS: INSULIN REGULAR 100 UNIT/ML SUBCUT SCH ×4 (03:01→17:28)
[2019-11-20] MEDS: MEROPENEM 500 MG in SODIUM CHLORIDE 0.9% 100 ML IV SCH ×2 (03:02→12:32)
[2019-11-20] MEDS: LIOTHYRONINE 25 MCG TABLET PO SCH (06:14)
[2019-11-20] MEDS: LEVOTHYROXINE 100 MCG VIAL IV SCH (06:16)
[2019-11-20 06:27] LABS: Hematocrit 27.3 VOL% (42.0-52.0); Hemoglobin 8.9 GM/DL (14.0-18.0); Immature Granulocytes % 0.7 %; Immature Granulocytes Absolute 0.06 #; Lymphocytes # 0.3 10*3/uL (1.4-4.0); Lymphocytes % 2.9 % (21.2-54.2); Mean Corpuscular HGB Conc 32.6 GM/DL (32-36); Mean Corpuscular Volume 81.7 FL (87-102); NRBC # 0.03 10*3/uL; Neutrophils % 91.4 % (38.7-73.9); Platelet Count 50 T/CUMM (130-400); Red Blood Count 3.34 MC/CUMM (3.8-5.5); Red Cell Distribution Width 17.3 % (9.3-17.3); White Blood Count 8.6 T/CUMM (4-12)
[2019-11-20 06:49] LABS: Osmolality,Calculated 307.8 MOS/KG (273-304)
[2019-11-20] MEDS: SODIUM BICARB INJ 50 MEQ in DEXTROSE 5% 1,000 ML IV SCH (07:36)
[2019-11-20] MEDS: CETIRIZINE 10 MG TABLET PO SCH (08:12)
[2019-11-20] MEDS: LACTULOSE 20 GM/30 ML UDCUP PO SCH ×3 (08:13→23:14)
[2019-11-20] MEDS: THIAMINE 200 MG/2 ML VIAL IV SCH ×3 (08:13→21:21)
[2019-11-20] MEDS: methylPREDNISolone SOD SUC 125 MG/2 ML VIAL IV SCH ×2 (08:13→15:23)
[2019-11-20] MEDS: POTASSIUM CHLORIDE INJ 40 MEQ in DEXTROSE 5% 1,000 ML IV SCH ×3 (08:14→21:48)
[2019-11-20] MEDS: BICALUTAMIDE 50 MG TABLET PO SCH (08:14)
[2019-11-20] MEDS: MULTIVITAMIN LIQUID (CENTRUM) 60 ML BOTTLE NG SCH (08:14)
[2019-11-20] MEDS: METOPROLOL TARTRATE 25 MG TABLET PO SCH ×2 (08:15→21:21)
[2019-11-20 08:24] LABS: Lymphocytes 5 % (20-55); Platelet Estimate Decreased; Segmented Neutrophils 93 % (50-85); Total Cells Counted 100
[2019-11-20 08:25] LABS: Anisocytosis 2+; Macrocytosis 1+; Poikilocytosis Slight; Target Cells Few
[2019-11-20] MEDS ORDERED: traZODone 50 MG TABLET PO PRN (14:57)
[2019-11-20] MEDS: ATORVASTATIN 40 MG TABLET PO SCH (21:21)
[2019-11-21] MEDS: INSULIN REGULAR 100 UNIT/ML SUBCUT SCH ×4 (00:03→17:56)
[2019-11-21 05:47] LABS: Hematocrit 26.4 VOL% (42.0-52.0); Hemoglobin 8.8 GM/DL (14.0-18.0); Immature Granulocytes % 0.8 %; Immature Granulocytes Absolute 0.08 #; Lymphocytes # 0.4 10*3/uL (1.4-4.0); Lymphocytes % 3.9 % (21.2-54.2); Mean Corpuscular HGB Conc 33.3 GM/DL (32-36); Monocytes % 4.1 % (1.7-12.7); NRBC # 0.05 10*3/uL; Neutrophils % 91.2 % (38.7-73.9); Platelet Count 43 T/CUMM (130-400); Red Blood Count 3.26 MC/CUMM (3.8-5.5); Red Cell Distribution Width 17.4 % (9.3-17.3); White Blood Count 9.5 T/CUMM (4-12)
[2019-11-21 06:01] LABS: Calcium 9.1 MG/DL (8.5-10.1); Osmolality,Calculated 311.4 MOS/KG (273-304)
[2019-11-21 06:11] LABS: Free T4 (Free Thyroxine) 1.34 NG/DL (0.76-1.46)
[2019-11-21 06:19] LABS: Burr Cells Slight; Hypochromasia 1+; Lymphocytes 4 % (20-55); Nucleated Red Blood Cells 1 (0-5); Ovalocytes Slight; Platelet Estimate Decreased; Segmented Neutrophils 92 % (50-85); Target Cells Few; Total Cells Counted 100
[2019-11-21] MEDS: LEVOTHYROXINE 100 MCG VIAL IV SCH (06:19)
[2019-11-21] MEDS: LIOTHYRONINE 25 MCG TABLET PO SCH (06:19)
[2019-11-21] MEDS ORDERED: propofoL 200 MG/20 ML VIAL IV ONE (09:00)
[2019-11-21] MEDS ORDERED: LIDOCAINE 2% 5 ML VIAL ONE (09:00)
[2019-11-21] MEDS: MULTIVITAMIN LIQUID (CENTRUM) 60 ML BOTTLE NG SCH (10:11)
[2019-11-21] MEDS: BICALUTAMIDE 50 MG TABLET PO SCH (10:12)
[2019-11-21] MEDS: LACTULOSE 20 GM/30 ML UDCUP PO SCH ×3 (10:12→22:02)
[2019-11-21] MEDS: THIAMINE 200 MG/2 ML VIAL IV SCH ×2 (10:12→15:18)
[2019-11-21] MEDS: MAGNESIUM CHLORIDE 64 MG TABLET PO SCH (10:12)
[2019-11-21] MEDS: METOPROLOL TARTRATE 25 MG TABLET PO SCH ×2 (10:13→22:02)
[2019-11-21] MEDS: CETIRIZINE 10 MG TABLET PO SCH (10:13)
[2019-11-21] MEDS: PANTOPRAZOLE 40 MG TABLET PO SCH ×2 (13:12→22:02)
[2019-11-21] MEDS: FUROSEMIDE 20 MG/2 ML VIAL IV SCH (15:17)
[2019-11-21] MEDS: HEPARIN 5,000 UNIT/1 ML VIAL SUBCUT SCH (15:18)
[2019-11-21] MEDS: ATORVASTATIN 40 MG TABLET PO SCH (22:02)
[2019-11-22] MEDS: THIAMINE 200 MG/2 ML VIAL IV SCH ×2 (00:46→09:57)
[2019-11-22] MEDS: POTASSIUM CHLORIDE INJ 40 MEQ in DEXTROSE 5% 1,000 ML IV SCH (00:50)
[2019-11-22] MEDS: INSULIN REGULAR 100 UNIT/ML SUBCUT SCH ×3 (00:51→12:22)
[2019-11-22] MEDS: HEPARIN 5,000 UNIT/1 ML VIAL SUBCUT SCH ×2 (03:11→14:30)
[2019-11-22] MEDS: LIOTHYRONINE 25 MCG TABLET PO SCH (06:29)
[2019-11-22] MEDS ORDERED: LEVOTHYROXINE 50 MCG TABLET PO SCH (06:30)
[2019-11-22] MEDS: LACTULOSE 20 GM/30 ML UDCUP PO SCH (09:54)
[2019-11-22] MEDS: MAGNESIUM CHLORIDE 64 MG TABLET PO SCH (09:55)
[2019-11-22] MEDS: BICALUTAMIDE 50 MG TABLET PO SCH (09:55)
[2019-11-22] MEDS: MULTIVITAMIN LIQUID (CENTRUM) 60 ML BOTTLE NG SCH (09:55)
[2019-11-22] MEDS: PANTOPRAZOLE 40 MG TABLET PO SCH (09:55)
[2019-11-22] MEDS: METOPROLOL TARTRATE 25 MG TABLET PO SCH (09:56)
[2019-11-22] MEDS: FUROSEMIDE 20 MG/2 ML VIAL IV SCH (09:57)
[2019-11-22] MEDS: CETIRIZINE 10 MG TABLET PO SCH (09:59)
[2019-11-22 13:14] VITALS: BP 119/87
== END 2019-11-22 15:25 | disposition swing bed (61) | DRG 70 ==
LOC: N.ED 16:46 → N.EDINP 22:42 → SUATTDRO 22:42 → N.EDINP 23:25 → N.ICU 23:39 → N.5E 11-18 00:08
PROVIDERS: ADMIT Internal Medicine Geriatric Medicine; ATTEND Hospitalist